=== PATIENT | male | born 1995 | race Caucasian/White ===

== ENCOUNTER 2022-01-01 16:48 | Emergency (ER) | payer BC ==
[~2022-01-01] VITALS: Ht 193 cm; Wt 75.0 kg
[~2022-01-01 16:48] MED LIST: OSEL75CA PO
[2022-01-01] MEDS ORDERED: CELL500T (16:59)
[2022-01-01] MEDS ORDERED: PROG1CAP10 (16:59)
[2022-01-01] MEDS ORDERED: PROG1CAP11 (16:59)
[2022-01-01] MEDS ORDERED: CARV3.12 (17:00)
[2022-01-01] MEDS ORDERED: AMLO1TAB24 (17:00)
[2022-01-01 21:45] VITALS: BP 125/76
== END 2022-01-01 21:46 | disposition home or self-care (01) ==
LOC: M ED 16:48
DX: U07.1 COVID-19 (principal); Q87.81 Alport syndrome; Z94.0 Kidney transplant status

== ENCOUNTER 2022-01-02 15:38 | Outpatient (CLI) | payer BC ==
[~2022-01-02] VITALS: Ht 190.5 cm; Wt 75.0 kg
[~2022-01-02 15:38] MED LIST changes: +ALBUTEROL 90 MCG/ACT 8GM HFA INHALER INH PRN; +ALBUTEROL SULFATE 2.5 MG/0.5 ML INH NEB SOLN INH PRN; +AMLO1TAB24; +CARV3.12; +CELL500T; +EPINEPHrine INJ 1 MG/ML 1ML AMP IM PRN; +NS 1,000 ML IV SCH; +PROG1CAP10; +PROG1CAP11; +diphenhydrAMINE 50MG/ML VIAL (J1200) IV PRN; +methylPREDNISolone 125MG 2ML VIAL IV PRN
[2022-01-02] MEDS ORDERED: SOTROVIMAB 500 MG in NS 100 ML IV ONE (16:20)
[2022-01-02 16:41] VITALS: BP 138/94
== END 2022-01-02 18:00 | disposition home or self-care (01) ==
LOC: M OPCLI4 15:38 → M 4MAIN 16:00 → M OPCLI4 18:00
PROVIDERS: ATTEND Internal Medicine Nephrology
DX: U07.1 COVID-19 (principal)